=== PATIENT | female | born 1985 | race American Indian/Alaskan Native ===

== ENCOUNTER 2019-08-11 07:16 | Emergency (ER) | payer MEDICAID ==
--- NOTE | 2019-08-11 08:34 | XRay Report ---
RIGHT KNEE 3 VIEWS INDICATION: pain swelling after fall. COMPARISON: None. IMPRESSION: Normal bone mineralization. 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 Mild osteoarthritic change s are identified in the medial compartment and patellofemoral space. No fracture or osteochondral def ect is detected. An 8 mm calcification is noted in the posterior joint space with a somewhat irregul ar border. This does not have the typical appearance of a fabella. This may represent a calcified int ra-articular foreign body. Small joint effusion is suspected on the lateral image. Signer Name: Dylon Osullivan Jr, MD Signed: 08/11/2019 8:30 AM Workstation Name: [id number]
--- NOTE | 2019-08-11 09:19 | Emergency Department Report ---
ED Extremity Problem HPI - General Chief complaint: Fall Stated complaint: FAINTED, KNEE & FOOT SWOLLEN Time Seen by Provider: 08/11/19 08:59 Source: patient Mode of arrival: Ambulatory Limitations: No Limitations - History of Present Illness Initial comments: Patient is a 33-year-old F [place] female who suffered a fall 2 days ago. Patient states she may have gotten up too fast and got dizzy and had a syncopal episode. She has not had any further syncope since. She fell to the ground and has some right foot and right knee pain. Patient has some swelling to the right knee. Patient has had to walk with a limp. States the pain is 6 out of 10 in severity and is achy in nature is better with rest and worse with bearing weight and walking. Regarding the patient's syncope she states this has happened in the past. She does not have a history of any current heavy vaginal bleeding or nausea vomiting diarrhea cough cold or congestion. - Related Data Previous Rx's Medication Instructions Recorded Last Taken Type Ketorolac [Toradol] 10 mg PO Q6H PRN #12 tablet 08/11/19 Unknown Rx methOCARBAMOL [Robaxin TAB] 500 mg PO Q6H PRN #14 tablet 08/11/19 Unknown Rx traMADoL [Ultram] 50 mg PO Q6HR PRN #12 tablet 08/11/19 Unknown Rx Allergies Allergy/AdvReac Type Severity Reaction Status Date / Time No Known Allergies Allergy Unverified 08/11/19 07:24 ED Review of Systems ROS: Stated complaint: FAINTED, KNEE & FOOT SWOLLEN Other details as noted in HPI Comment: All other systems reviewed and negative ED Past Medical Hx - Past Medical History Previous Medical History?: Yes Hx Asthma: Yes - Surgical History Past Surgical History?: Yes Additional Surgical History: stye removed from left eye - Social History Smoking Status: Current Some Day Smoker - Medications Home Medications: Home Medications Medication Instructions Recorded Confirmed Last Taken Type Ketorolac [Toradol] 10 mg PO Q6H PRN #12 tablet 08/11/19 Unknown Rx methOCARBAMOL [Robaxin TAB] 500 mg PO Q6H PRN #14 tablet 08/11/19 Unknown Rx traMADoL [Ultram] 50 mg PO Q6HR PRN #12 tablet 08/11/19 Unknown Rx ED Physical Exam - General Limitations: No Limitations General appearance: alert, in no apparent distress - Head Head exam: Present: atraumatic, normocephalic - Eye Eye exam: Present: normal appearance - ENT ENT exam: Present: mucous membranes moist - Neck Neck exam: Present: normal inspection. Absent: tenderness, meningismus - Respiratory Respiratory exam: Present: normal lung sounds bilaterally. Absent: respiratory distress, wheezes, rales, rhonchi - Cardiovascular Cardiovascular Exam: Present: regular rate, normal rhythm, normal heart sounds. Absent: systolic murmur, diastolic murmur, rubs, gallop - GI/Abdominal GI/Abdominal exam: Present: soft, normal bowel sounds. Absent: distended, tenderness, guarding, rebound - Extremities Exam Extremities exam: Present: normal inspection - Expanded Lower Extremity Exam Right Hip exam: Present: normal inspection, full ROM. Absent: tenderness Upper Leg exam: Present: normal inspection Knee exam: Present: tenderness, swelling, effusion, full knee extension. Absent: ecchymosis, deformity, dislocation, erythema, pain/laxity with valgus, pain/laxity with varus Lower Leg exam: Present: tenderness (mild calf pain with movement, none with palpation) Ankle exam: Present: swelling (no bony tenderness) Foot/Toe exam: Present: swelling - Back Exam Back exam: Present: normal inspection - Neurological Exam Neurological exam: Present: alert, oriented X3 - Psychiatric Psychiatric exam: Present: normal affect, normal mood - Skin Skin exam: Present: warm, dry, intact, normal color. Absent: rash ED Course Vital Signs 08/11/19 08/11/19 07:23 08:41 Temperature 97.5 F L Pulse Rate 53 L Respiratory 16 18 Rate Blood Pressure 159/68 O2 Sat by Pulse 100 Oximetry ED Medical Decision Making - Radiology Data Ordering Physician: BERHANE MARCIAL Date of Service: 08/11/19 Procedure(s): XR knee 3V RT Accession Number(s): [id number] cc: BERHANE MARCIAL Fluoro Time In Minutes: RIGHT KNEE 3 VIEWS INDICATION: pain swelling after fall. COMPARISON: None. IMPRESSION: Normal bone mineralization. 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 Mild osteoarthritic changes are identified in the medial compartment and patellofemoral space. No fracture or osteochondral defect is detected. An 8 mm calcification is noted in the posterior joint space with a somewhat irregular border. This does not have the typical appearance of a fabella. This may represent a calcified intra-articular foreign body. Small joint effusion is suspected on the lateral image. Signer Name: Dylon Osullivan Jr, MD Signed: 08/11/2019 8:30 AM Workstation Name: [id number] - Medical Decision Making Patient suffered a syncopal episode 2 days ago. Patient is not exhibiting any evidence of dizziness upon standing. I was able to witness her stand with ease. Patient initially stated she could not bear weight on her right lower extremity however she did bear weight here in emergency department but is still walking with a limp. Patient has some discomfort with palpation to the right knee and right calf. X-rays are negative for fracture. Patient likely with muscle strain. Patient be discharged home with rice instruction and medication for pain relief. Patient given orthopedics follow-up. Critical care attestation.: If time is entered above; I have spent that time in minutes in the direct care of this critically ill patient, excluding procedure time. ED Disposition Clinical Impression: Musculoskeletal pain of right lower extremity, Knee effusion, right, Vasovagal reaction Disposition: -01 TO HOME OR SELFCARE Is pt being admited?: No Does the pt Need Aspirin: No Condition: Stable Instructions: Syncope (ED), Knee Effusion (ED), RICE Therapy (ED) Referrals: PINO CEJA MD [Staff Physician] - 3-5 Days ROS IRAHETA MD [Staff Physician] - 3-5 Days Time of Disposition: 09:21
[2019-08-11 10:11] VITALS: BP 170/97
== END 2019-08-11 09:53 | disposition home or self-care (01) ==
LOC: ED 07:16
DX: M79.604 Pain in right leg (principal); M25.461 Effusion, right knee; R55 Syncope and collapse; F17.200 Nicotine dependence, unspecified, uncomplicated